=== PATIENT | male | born 1970 | race Caucasian/White ===

== ENCOUNTER → 2016-11-19 | Outpatient (CLI) | payer BC ==
[~2016-11-19] MED LIST: HYDR-34 PO
--- NOTE | 2016-11-19 17:12 | Diagnostic Imaging Report ---
EXAMINATION: Left groin ultrasound. INDICATION: Left groin pain. FINDINGS/IMPRESSION: 1. There is no mass, fluid collection or evidence of hernia. 2. If symptoms persist, consider CT or MRI evaluation. Dictated by: Dictated on workstation # [id number]
--- NOTE | 2016-11-19 17:41 | Diagnostic Imaging Report ---
Ultrasound of the right groin. INDICATION: Right groin pain. FINDINGS: There is no mass, hernia or fluid collection identified. IMPRESSION: Unremarkable exam. Dictated by: Dictated on workstation # [id number]
== END ==
LOC: RAD 15:51
PROVIDERS: ATTEND Nurse Practitioner
DX: R10.31 Right lower quadrant pain (principal); R10.32 Left lower quadrant pain
CPT/HCPCS: 76881

== ENCOUNTER → 2018-06-15 | Outpatient (CLI) | payer BC ==
--- NOTE | 2018-06-15 12:21 | Diagnostic Imaging Report ---
PA and lateral chest at 927 hours. INDICATION: Exposure to hazardous materials, difficulty breathing. FINDINGS: The heart size is within normal limits and stable when compared to 04/19/2013. The lungs are clear. There is no evidence for failure, pneumonia or for pleural effusion. The small granulomas about the right hilum seen previously are again evident and no different. The mediastinum is not widened. The osseous structures are intact. IMPRESSION: Stable chest. There has been no adverse change since the prior exam. There is no acute cardiopulmonary abnormality identified. Dictated by: Dictated on workstation # [id number]
== END ==
LOC: RAD 08:54
PROVIDERS: ATTEND Family Medicine
DX: R06.00 Dyspnea, unspecified (principal); Z77.29 Contact with and (suspected) exposure to other hazardous substances
CPT/HCPCS: 71046

== ENCOUNTER 2018-07-11 12:00 | Outpatient (CLI) | payer BC ==
[~2018-07-11] VITALS: Ht 177.8 cm; Wt 96.2 kg
[~2018-07-11 12:00] MED LIST changes: +MIRA50TA PO
== END 2018-07-11 12:16 | disposition home or self-care (01) ==
LOC: PREOP 12:00
PROVIDERS: ATTEND Surgery
DX: Z01.818 Encounter for other preprocedural examination (principal)

== ENCOUNTER 2018-07-29 11:32 | Day surgery (SDC) | payer BC ==
[~2018-07-29] VITALS: Ht 177.8 cm; Wt 96.2 kg
[2018-07-29 11:40] VITALS: BP 139/81
[2018-07-29] MEDS ORDERED: MIDAZOLAM 2 MG/2 ML (VERSED) VIAL ONE ×5 (11:44→12:35)
[2018-07-29] MEDS ORDERED: fentaNYL INJECTION 100 MCG/2 ML AMP ONE ×2 (11:45→12:39)
[2018-07-29] MEDS ORDERED: LIDOCAINE JELLY 2% 6 ML SYRINGE ONE (11:45)
[2018-07-29] MEDS ORDERED: NS IV 500 ML 500 ML ONE (11:46)
[2018-07-29] MEDS ORDERED: NS IV 500 ML 500 ML IV PRN (11:53)
[2018-07-29] MEDS ORDERED: MIDAZOLAM 2 MG/2 ML (VERSED) VIAL IVP ONE (12:00)
[2018-07-29] MEDS ORDERED: LIDOCAINE JELLY 2% 6 ML SYRINGE MM PRN (12:00)
[2018-07-29] MEDS ORDERED: fentaNYL INJECTION 100 MCG/2 ML AMP IVP ONE (12:00)
--- NOTE | 2018-07-29 12:25 | Conscious Sedation/ASA ---
Conscious Sedation Pre-Proced Time 12:00 ASA Score 1 For ASA 3 and 4: Consider anesthesia and medical clearance. Also, for patients with a history of failed moderate sedation consider anesthesia. Airway Lungs Heart ASA score ASA 1: a normal healthy patient ASA 2: a patient with a mild systemic disease (mid diabetes, controlled hypertension, obesity ASA 3: a patient with a severe systemic disease that limits activity (angina , COPD, prior Myocardial infarction) ASA 4: a patient with an incapacitating disease that is a constant threat to life (CHF, renal failure) ASA 5: a moribund patient not expected to survive 24 hrs. (ruptured aneurysm) ASA 6: a declared brain patient whose organs are being harvested. For emergent operations, add the letter E after the classification Mallampati Classification Grade 2 Sedation Plan Analgesia, Amnesia, Plan communicated to team members, Discussed options with patient/fam, Discussed risks with patient/fam The patient is an appropriate candidate to undergo the planned procedure, sedation, and anesthesia. The patient immediately re-assessed prior to indication. SHAMIKA RAYO MD Jul 29, 2018 12:25
--- NOTE | 2018-07-29 12:26 | Progress Note-Pre Operative ---
Pre-Operative Progress Note H&P Reviewed The H&P was reviewed, patient examined and no changes noted. Date Seen by Provider: Jul 29, 2018 Time Seen by Provider: 12:00 Date H&P Reviewed: Jul 29, 2018 Time H&P Reviewed: 12:00 Pre-Operative Diagnosis: family hx colon ca, rectal bleed SHAMIKA RAYO MD Jul 29, 2018 12:26
--- NOTE | 2018-07-29 12:28 | Discharge Inst-Surgical ---
D/C Lap Instructions-GIRMA Follow Up 5 years Activity as tolerated High Fiber Diet 25g or more per day Avoid Alcohol, Caffeine, Spicy [place] and Acid foods. Drink 64 fluid oz or more of fluids per day. Symptoms to Report: Fever over 101 degree F, Nausea/Vomiting If any problems/questions: Contact your physician or go to Emergency Room SHAMIKA RAYO MD Jul 29, 2018 12:28
[2018-07-29] MEDS ORDERED: ACETAMINOPHEN 325 MG TABLET PO PRN (12:30)
[2018-07-29] MEDS ORDERED: HYDROcodone/APAP 5 MG/325 MG (LORTAB) TAB PO PRN (12:30)
[2018-07-29] MEDS ORDERED: morphine INJ 10 MG/ML 1ML (SYR OR VIAL) IV PRN (12:30)
[2018-07-29] MEDS ORDERED: ONDANSETRON 4 MG/2 ML (SDV) Z0FRAN IV PRN (12:30)
--- NOTE | 2018-07-29 12:58 | Progress Note-Post Operative ---
Post-Operative Progess Note Surgeon (s)/Advertising Director (s) Surgeon SHAMIKA RAYO MD Advertising Director: none Pre-Operative Diagnosis family hx colon ca, rectal bleed Post-Operative Diagnosis mild chronic stage 2 ext and int hemorrhoids with mild ext hemorrhoidal irritation, no active bleed. Procedure & Operative Findings Date of Procedure 07/29/18 Procedure Performed/Findings Colonoscopy. Anesthesia Type CS Estimated Blood Loss Estimated blood loss (mL): minimal Specimens/Packing Specimens Removed none SHAMIKA RAYO MD Jul 29, 2018 12:58
[2018-07-29 13:05] VITALS: BP 90/53
[2018-07-29 13:40] VITALS: BP 111/62
[2018-07-29 13:43] VITALS: BP 111/62
--- NOTE | 2018-07-30 01:22 | OPERATIVE REPORT ---
DATE OF SERVICE: 07/29/2018 ATTENDING PRIMARY CARE PHYSICIAN: Heydi Carpenter DO PREOPERATIVE DIAGNOSIS: Episode of rectal bleeding, family history of colon cancer. POSTOPERATIVE DIAGNOSIS: Chronic stage II external and internal hemorrhoids. The remainder of the rectum and colon were normal. PROCEDURE: Colonoscopy. SURGEON: Shamika Rayo MD ANESTHESIA: Conscious sedation. ESTIMATED BLOOD LOSS: Minimal. FINDINGS: Mild chronic stage II external and internal hemorrhoids with no active bleeding. The remainder of the rectum and colon were normal. There were no polyps or any neoplasms identified. DISPOSITION: The patient tolerated the procedure well. INDICATIONS: The patient is a 47-year-old male known to us. We had initially seen him in 06/2015 for screening colonoscopy. Before that time, he reported having 2 colonoscopies prior due to a strong family history of colon cancer. He states that his father as well as paternal aunt both had colon cancer. He reports occasional episodes of constipation and did have an episode of red blood per rectum in early 05/2018. He also does report some signs and symptoms of hemorrhoidal flareups. His last colonoscopy was in 2014, which was normal. DESCRIPTION OF PROCEDURE: The patient was brought to the endoscopy suite, laid in the left lateral decubitus position. After adequate IV pain and sedative medications and conscious sedation anesthesia, a digital rectal examination was performed. Mild stage II chronic external and internal hemorrhoids were identified with some mild irritation of the external hemorrhoidal cushions most likely due to the prep. There was no active bleeding identified. Normal sphincter tone was felt and there were no palpable masses. Prostate gland was palpable and appeared normal. The endoscope was then intubated into the anus and rectum gently insufflated. The endoscope was then advanced to the valves of [place] in the rectum with no polyps or any neoplasms identified. We then proceeded through the sigmoid colon where no diverticulosis identified. The endoscope was then advanced to the remainder of the descending, transverse and ascending colon to the cecum. These segments were normal. There were no polyps or any neoplasms identified throughout the colon or any active bleeding source identified. The endoscope was then slowly withdrawn while taking a second look and suctioning of residual air with no additional findings. The patient tolerated the procedure well. We will recommend medical management with a high fiber diet with at least 30 grams of fiber or more per day as well as copious amounts of water to promote soft stools on a daily basis and avoid episodes of constipation. We will recommend a followup colonoscopy in 5 years due to his first-degree family history of colon cancer. Job ID: [id number] DocumentID: [id number] Dictated Date: 07/29/2018 12:50:39 Systems Programmer Date: 07/30/2018 01:21:16 Dictated By: SHAMIKA RAYO MD
== END 2018-07-29 14:10 | disposition home or self-care (01) ==
LOC: ENDO 11:32
PROVIDERS: ATTEND Surgery
DX: K62.5 Hemorrhage of anus and rectum (principal); K64.1 Second degree hemorrhoids; Z80.0 Family history of malignant neoplasm of digestive organs

== ENCOUNTER → 2020-02-22 | Outpatient (CLI) | payer BC | LOC: LABNPT 08:02 | PROVIDERS: ATTEND Family Medicine | DX: J02.9 Acute pharyngitis, unspecified (principal); R51 Headache; Z20.828 Contact with and (suspected) exposure to other viral communicable diseases | CPT/HCPCS: 87635 ==

== ENCOUNTER → 2021-02-14 | Outpatient (CLI) | payer BC | LOC: LABNPT 05:15 | PROVIDERS: ATTEND Family Medicine | DX: Z13.89 Encounter for screening for other disorder (principal); Z20.822 Contact with and (suspected) exposure to COVID-19 | CPT/HCPCS: 87635 ==

== ENCOUNTER 2021-02-18 20:32 | Outpatient (CLI) | payer BC | END 2021-02-19 06:50 | disposition home or self-care (01) | LOC: SLEEP 20:32 | PROVIDERS: ATTEND Family Medicine | DX: G47.33 Obstructive sleep apnea (adult) (pediatric) (principal) | CPT/HCPCS: 95811 ==